=== PATIENT | female | born 1975 | race Caucasian/White ===

== ENCOUNTER 2017-10-07 13:24 | Emergency (ER) | payer OTHER ==
[~2017-10-07] VITALS: Ht 162.6 cm; Wt 67.1 kg
== END 2017-10-07 23:18 | disposition home or self-care (01) ==
LOC: ER 13:24
DX: N39.0 Urinary tract infection, site not specified (principal); R10.32 Left lower quadrant pain

== ENCOUNTER 2017-10-12 12:02 | Emergency (ER) | payer OTHER ==
[~2017-10-12] VITALS: Ht 162.6 cm; Wt 67.1 kg
[2017-10-13] MEDS ORDERED: ZANTAC150 MG PO (10:05)
[2017-10-13] MEDS ORDERED: AMOX-CLAV 875-1 EACH PO (10:05)
[2017-10-13] MEDS ORDERED: INTESTINEX680 M1 PO (10:05)
[2017-10-13] MEDS ORDERED: ULTRACET PO (10:05)
== END 2017-10-13 10:42 | disposition home or self-care (01) ==
LOC: ER 12:02
DX: K63.89 Other specified diseases of intestine (principal); R10.32 Left lower quadrant pain

== ENCOUNTER 2017-11-01 19:46 | Inpatient (IN) | payer OTHER ==
[~2017-11-01] VITALS: Ht 162.6 cm; Wt 67.1 kg
[~2017-11-01 19:46] MED LIST: AMOX-CLAV 875-1 EACH PO; INTESTINEX680 M1 PO; ULTRACET PO; ZANTAC150 MG PO
[2017-11-16] MEDS ORDERED: FAMOTIDINE20 MG PO (10:47)
[2017-11-16] MEDS ORDERED: PANTOPRAZOLE SO40 MG PO (10:47)
[2017-11-16] MEDS ORDERED: INTESTINEX680 M1 PO (10:48)
[2017-11-16] MEDS ORDERED: CYMBALTA30 MG PO (10:48)
== END 2017-11-16 14:30 | disposition home or self-care (01) | DRG 389 ==
LOC: ER 19:46 → SEC-K 11-02 10:00 → MEDJ 11-02 10:00 → MEDI 11-02 11:19 → MEDJ 11-03 12:54
PROC: BW3GYZZ Magnetic Resonance Imaging (MRI) of Pelvic Region using Other Contrast (ICD-10-PCS; 2017-11-09)
PROC: BU4CZZZ Ultrasonography of Uterus and Ovaries (ICD-10-PCS; 2017-11-10)
PROC: 0JB93ZX Excision of Buttock Subcutaneous Tissue and Fascia, Percutaneous Approach, Diagnostic (ICD-10-PCS; principal; 2017-11-11)
DX: K56.690 Other partial intestinal obstruction (principal); N39.0 Urinary tract infection, site not specified; Q51.3 Bicornate uterus; N95.0 Postmenopausal bleeding; N94.19 Other specified dyspareunia; R10.2 Pelvic and perineal pain; D17.1 Benign lipomatous neoplasm of skin and subcutaneous tissue of trunk
CPT/HCPCS: 72196

== ENCOUNTER 2021-06-15 16:55 | Emergency (ER) | payer OTHER ==
[~2021-06-15] VITALS: Ht 162.6 cm; Wt 62.6 kg
[~2021-06-15 16:55] MED LIST changes: +CYMBALTA30 MG PO; +FAMOTIDINE20 MG PO; +PANTOPRAZOLE SO40 MG PO
[2021-06-15] MEDS ORDERED: ELIQUIS5 MG PO (17:06)
== END 2021-06-15 22:35 | disposition home or self-care (01) ==
LOC: ER 16:55
DX: N39.0 Urinary tract infection, site not specified (principal)

== ENCOUNTER 2022-07-08 13:54 | Emergency (ER) | payer OTHER ==
[~2022-07-08] VITALS: Ht 152.4 cm; Wt 80.7 kg
[~2022-07-08 13:54] MED LIST changes: +ELIQUIS5 MG PO
== END 2022-07-08 17:05 | disposition home or self-care (01) ==
LOC: ER 13:54
DX: J06.9 Acute upper respiratory infection, unspecified (principal); Z88.6 Allergy status to analgesic agent; Z88.8 Allergy status to other drugs, medicaments and biological substances

== ENCOUNTER 2023-01-18 18:12 | Emergency (ER) | payer OTHER ==
[~2023-01-18] VITALS: Ht 162.6 cm; Wt 76.2 kg
== END 2023-01-18 19:18 | disposition home or self-care (01) ==
LOC: ER → EDBD 18:12 → ER 18:12
DX: M79.671 Pain in right foot (principal); Z88.6 Allergy status to analgesic agent; Z88.8 Allergy status to other drugs, medicaments and biological substances

== ENCOUNTER 2023-11-16 15:38 | Emergency (ER) | payer OTHER ==
[~2023-11-16] VITALS: Ht 162.6 cm; Wt 64.9 kg
[2023-11-16] MEDS ORDERED: ONDANSETRON HCL 2 MG/ML VIAL IV ONE (16:30)
[2023-11-16] MEDS ORDERED: ONDANSETRON HCL 2 MG/ML VIAL ONE (16:43)
[2023-11-16] MEDS ORDERED: LACTOBACILLUS ACIDOPHILUS 1 CAP CAP PO ONE ×2 (16:43→16:45)
[2023-11-16] MEDS ORDERED: FAMOTIDINE/PF 20 MG/2 ML VIAL ONE (16:43)
[2023-11-16] MEDS ORDERED: 0.9 % SODIUM CHLORIDE 1,000 ML IV ONE (16:45)
[2023-11-16] MEDS ORDERED: FAMOTIDINE/PF 20 MG/2 ML VIAL IV ONE (16:45)
[2023-11-16] MEDS ORDERED: MEPERIDINE HCL/PF 25 MG/ML VIAL IM ONE (16:45)
[2023-11-16 17:22] LABS: HEMATOCRIT 37.9 % (36.0-45.00); HEMOGLOBIN 12.4 g/dL (12.0-15.00); MEAN CELL VOLUME 74.6 fL (80.00-100.00); MEAN CORPUSCULAR HEMOGLOBIN 24.3 pg (27.00-32.0); MEAN CORPUSCULAR HGB CONC 32.6 g/dl (32.0-36.0); PLATELET COUNT 304 K/uL (150-450); RED BLOOD COUNT 5.08 M/uL (4.00-6.00); RED CELL DISTRIBUTION WIDTH 16.6 % (11.5-14.5)
[2023-11-16 17:40] LABS: ALBUMIN 3.8 gm/dL (3.4-5.0); BILIRUBIN TOTAL 0.33 mg/dL (0.3-1.2); CALCIUM 9.2 mg/dL (8.5-10.1); CREATININE SERUM 0.8 mg/dL (0.55-1.02); GFR 76.56; GLOBULINA 4.2 G/DL (2.4-3.5); POTASSIUM 3.38 mEq/L (3.5-5.1)
[2023-11-16 18:49] LABS: URINE APPEARANCE Clear; URINE BILIRRUBIN Negative (NEGATIVE); URINE BLOOD Negative; URINE COLOR Yellow; URINE GLUCOSE Negative (NEGATIVE); URINE KETONE Negative (NEGATIVE); URINE LEUKOCYTE Negative; URINE NITRATE Negative; URINE PROTEIN Negative (NEGATIVE); URINE UROBILINOGEN 0.2 E.U./dl
[2023-11-16 18:53] LABS: URINE BACTERIA 13.8 uL (0.0-1933); URINE EPITHELIAL CELLS 9.3 uL (0.0-38.8); URINE WBC 2.6 uL (0.0-23.2)
[2023-11-16] MEDS ORDERED: PEPCID AC20 MG PO (19:33)
[2023-11-16] MEDS ORDERED: ONDANSETRON HCL4 MG PO (19:33)
[2023-11-16] MEDS ORDERED: INTESTINEX680 M1 PO (19:33)
[2023-11-16] MEDS ORDERED: HYOSCYAMINE SULFATE 0.125 MG TAB.SUBL SL ONE (19:45)
[2023-11-16] MEDS ORDERED: LEVSIN0.125 MG PO (19:45)
[2023-11-16] MEDS ORDERED: HYOSCYAMINE SULFATE 0.125 MG TAB.SUBL ONE (19:47)
[2023-11-16 19:53] LABS: URINE RBC 1.6 uL (0.0-20.8)
== END 2023-11-16 20:21 | disposition home or self-care (01) ==
LOC: ER 15:40
PROVIDERS: Nurse Practitioner Family
DX: K58.9 Irritable bowel syndrome, unspecified (principal); Z88.8 Allergy status to other drugs, medicaments and biological substances

== ENCOUNTER 2023-12-04 17:53 | Emergency (ER) | payer OTHER ==
[~2023-12-04] VITALS: Ht 162.6 cm; Wt 64.4 kg
[~2023-12-04 17:53] MED LIST changes: +LEVSIN0.125 MG PO; +ONDANSETRON HCL4 MG PO; +PEPCID AC20 MG PO
[2023-12-04] MEDS ORDERED: DIATRIZOATE MEGLUMINE, SODIUM 30 ML BOTTLE ONE (18:46)
[2023-12-04] MEDS ORDERED: ONDANSETRON HCL 2 MG/ML VIAL ONE (19:08)
[2023-12-04 19:12] LABS: HEMATOCRIT 38.4 % (36.0-45.00); HEMOGLOBIN 12.5 g/dL (12.0-15.00); MEAN CELL VOLUME 74.7 fL (80.00-100.00); MEAN CORPUSCULAR HEMOGLOBIN 24.2 pg (27.00-32.0); MEAN CORPUSCULAR HGB CONC 32.5 g/dl (32.0-36.0); PLATELET COUNT 305 K/uL (150-450); RED BLOOD COUNT 5.14 M/uL (4.00-6.00); RED CELL DISTRIBUTION WIDTH 16.8 % (11.5-14.5)
[2023-12-04] MEDS ORDERED: ONDANSETRON HCL 2 MG/ML VIAL IV ONE (19:15)
[2023-12-04 19:29] LABS: CALCIUM 9.5 mg/dL (8.5-10.1); CREATININE SERUM 0.73 mg/dL (0.55-1.02); GFR 85.09; POTASSIUM 3.6 mEq/L (3.5-5.1)
[2023-12-04 19:45] LABS: URINE APPEARANCE Clear; URINE BILIRRUBIN Negative (NEGATIVE); URINE BLOOD Large; URINE COLOR Red; URINE GLUCOSE Negative (NEGATIVE); URINE KETONE Negative (NEGATIVE); URINE LEUKOCYTE Trace; URINE NITRATE Negative; URINE PROTEIN 30 (NEGATIVE); URINE UROBILINOGEN 0.2 E.U./dl
[2023-12-04 19:48] LABS: URINE EPITHELIAL CELLS 24.2 uL (0.0-38.8); URINE RBC 3471.8 uL (0.0-20.8); URINE WBC 37.5 uL (0.0-23.2)
[2023-12-04] MEDS ORDERED: MEPERIDINE HCL/PF 50 MG/ML VIAL IM ONE (20:15)
[2023-12-04] MEDS ORDERED: TAMSULOSIN HCL 0.4 MG CAP PO ONE ×2 (23:00→23:16)
[2023-12-04] MEDS ORDERED: MEPERIDINE HCL 25 MG/ML AMPUL IV ONE (23:00)
== END 2023-12-04 23:44 | disposition home or self-care (01) ==
LOC: ER 17:55
PROVIDERS: Emergency Medicine
DX: R10.9 Unspecified abdominal pain (principal); Z88.1 Allergy status to other antibiotic agents; Z88.6 Allergy status to analgesic agent
CPT/HCPCS: 36415; 74177; Q9965

== ENCOUNTER 2025-02-21 16:20 | Emergency (ER) | payer OTHER ==
[~2025-02-21] VITALS: Ht 162.6 cm; Wt 60.8 kg
[2025-02-21] MEDS ORDERED: LACTOBACILLUS ACIDOPHILUS 1 CAP CAP PO ONE ×2 (17:30→17:47)
[2025-02-21] MEDS ORDERED: ONDANSETRON HCL 2 MG/ML VIAL IV ONE (17:30)
[2025-02-21] MEDS ORDERED: FAMOTIDINE/PF 20 MG/2 ML VIAL IV ONE (17:30)
[2025-02-21] MEDS ORDERED: 0.9 % SODIUM CHLORIDE 1,000 ML IV ONE (17:30)
[2025-02-21] MEDS ORDERED: FAMOTIDINE/PF 20 MG/2 ML VIAL ONE (17:47)
[2025-02-21] MEDS ORDERED: ONDANSETRON HCL 2 MG/ML VIAL ONE (17:47)
[2025-02-21] MEDS ORDERED: HYOSCYAMINE SULFATE 0.125 MG TAB.SUBL ONE (17:48)
[2025-02-21] MEDS ORDERED: HYOSCYAMINE SULFATE 0.125 MG TAB.SUBL SL ONE (18:00)
[2025-02-21 18:30] LABS: BASO % 0.8 % (0.1-1.2); EOS # 0.10 (0.04-0.54); EOS % 1.5 % (0.7-7.0); LYMPH # 1.80 (1.18-3.74); LYMPH % 27.3 % (19.3-53.1); MEAN PLATELET VOLUME 10.70 fl (9.4-12.4); MONO # 0.36 (0.24-0.82); MONO % 5.5 % (4.7-12.5); NEUT # 4.27 (1.56-6.13); NEUT % 64.7 % (34.0-71.1); RED CELL DISTRIBUTION WIDTH 13.9 % (11.6-14.4)
[2025-02-21 18:51] LABS: URINE APPEARANCE Clear; URINE BILIRRUBIN Negative (NEGATIVE); URINE BLOOD Negative; URINE COLOR Yellow; URINE GLUCOSE Negative (NEGATIVE); URINE KETONE Trace (NEGATIVE); URINE LEUKOCYTE Negative; URINE NITRATE Negative; URINE PROTEIN Negative (NEGATIVE); URINE UROBILINOGEN 0.2 E.U./dl
[2025-02-21 18:52] LABS: INR 1.04
[2025-02-21 18:53] LABS: URINE BACTERIA 14.8 uL (0.0-1933); URINE EPITHELIAL CELLS 4.7 uL (0.0-38.8); URINE WBC 1.8 uL (0.0-23.2)
[2025-02-21 18:56] LABS: ALT/SGPT 35.0 U/L (12-78); AST/SGOT 12.0 U/L (15-37); BILIRUBIN TOTAL 0.3 mg/dL (0.3-1.2); BUN CREA RATIO 17.0 (7.0-25.0); CREATININE SERUM 0.75 mg/dL (0.55-1.02); GFR 82.13; GLOBULINA 3.7 G/DL (2.4-3.5); GLUCOSE FASTING 82.0 mg/dL (65-100); OSMOLALITY SERUM 286.0 MOSM/KG (275-295)
[2025-02-21 19:07] LABS: URINE CAST 0.14 uL (0.0-1.40); URINE RBC 1.5 uL (0.0-20.8)
[2025-02-21] MEDS ORDERED: GABAPENTIN 100 MG CAPSULE PO ONE (21:30)
== END 2025-02-21 23:29 | disposition home or self-care (01) ==
LOC: ER 16:21
PROVIDERS: General Practice
DX: R10.12 Left upper quadrant pain (principal); Z88.6 Allergy status to analgesic agent; Z98.890 Other specified postprocedural states